=== PATIENT | male | born 1995 | race Caucasian/White ===

== ENCOUNTER 2020-07-22 11:29 | Outpatient (CLI) | payer BC ==
--- NOTE | 2020-07-22 12:26 | RAD ---
XR Lumbar Spine 2 Or 3 View History: Strain of lumbar region Comparison: None. Findings: No acute fracture or malalignment. Minimal degenerative disc space height loss at L5/S1 wit h small posterior disc osteophyte complex. Impression: Minimal L5/S1 spondylosis.
== END 2020-07-22 11:30 | disposition home or self-care (01) ==
LOC: RAD 11:29
PROVIDERS: ATTEND Family Medicine
DX: S39.012A Strain of muscle, fascia and tendon of lower back, initial encounter (principal); M47.817 Spondylosis without myelopathy or radiculopathy, lumbosacral region
CPT/HCPCS: 72100